=== PATIENT | female | born 1975 | race Caucasian/White ===

== ENCOUNTER 2017-04-18 20:11 | Emergency (ER) | payer OTHER ==
--- NOTE | 2017-04-18 21:28 | XRAY Preliminary Report ---
Exam: XR CHEST 2 VIEW PA/LAT IMPRESSION: 1. No acute disease in the chest. [facility] SITE ID: [id number]
[2017-04-18] MEDS ORDERED: IPRATROPIUM/ALBUTEROL 3 ML NEB INH STA (21:30)
[2017-04-18] MEDS ORDERED: DEXAMETHASONE 10 MG/ML VIAL PO STA (21:31)
--- NOTE | 2017-04-18 21:31 | XRAY Report ---
EXAM: CHEST RADIOGRAPHY EXAM DATE: 04/18/2017 08:56 PM. CLINICAL HISTORY: Cough, fever. COMPARISON: 07/01/2010. TECHNIQUE: 2 views. FINDINGS: Lungs/Pleura: No focal opacities evident. No pleural effusion. No pneumothorax. Normal volumes. Mediastinum: Heart and mediastinal contours are unremarkable. Other: None. IMPRESSION: 1. No acute disease in the chest. [facility] Referring Provider Line: [phone] SITE ID: [id number]
--- NOTE | 2017-04-18 21:33 | ED Physician Documentation ---
PD HPI URI - Stated complaint Stated Complaint: SOA/COUGH - Chief complaint Chief Complaint: Resp - History obtained from History obtained from: Patient, Family - History of Present Illness Timing - onset: How many weeks ago (1) Timing duration: Weeks (1) Timing details: Gradual onset Pain level max: 4 Pain level now: 3 Associated symptoms: Fever (Subjective), Nasal congestion, Rhinorrhea, Sore throat, Dry cough, Dyspnea (wheezing) Contributing factors: Sick contact, COPD / asthma (smokes cigarettes) Improves by: Rest Worsened by: Activity, Breathing Recently seen: Not recently seen Review of Systems Constitutional: reports: Fever, Chills Nose: reports: Rhinorrhea / runny nose, Congestion Cardiac: denies: Chest pain / pressure Respiratory: reports: Cough, Wheezing GI: denies: Abdominal Pain, Vomiting, Diarrhea : denies: Now EGA Skin: denies: Rash Musculoskeletal: denies: Neck pain, Back pain Neurologic: reports: Headache (Only when coughing) PD PAST MEDICAL HISTORY - Past Medical History Past Medical History: Yes GI: Other (IBS) Other Past Medical History: Costocondritis, seasonal allergies. 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 - Present Medications Home Medications: Ambulatory Orders Medication Instructions Recorded Confirmed Albuterol Sulf [Ventolin Hfa 2 puffs INH Q4HR PRN #1 inhaler 04/18/17 Inhaler] Benzonatate [Tessalon Perle] 100 - 200 mg PO TID PRN #30 capsule 04/18/17 Dicyclomine [Bentyl] 1 cap PO QID 04/18/17 04/18/17 Loratadine [Claritin] 1 tab PO DAILY 04/18/17 04/18/17 Methocarbamol [Robaxin] 1 tab PO QID 04/18/17 04/18/17 Omeprazole [PriLOSEC] 1 cap PO TID 04/18/17 04/18/17 raNITIdine [Zantac] 1 tab PO BID 04/18/17 04/18/17 - Allergies Allergies/Adverse Reactions: Allergies Allergy/AdvReac Type Severity Reaction Status Date / Time codeine Allergy Rash Verified 04/18/17 20:24 Penicillins Allergy Rash Verified 04/18/17 20:24 - Living Situation Living Situation: reports: With family Living Arrangement: reports: At home - Social History Does the pt smoke?: Yes Smoking Status: Current every day smoker Does the pt drink ETOH?: No Does the pt have substance abuse?: No - Immunizations Immunizations are current?: Yes PD ED PE NORMAL - Vitals Vital signs reviewed: Yes - General General: Alert and oriented X 3, No acute distress, Well developed/nourished - HEENT HEENT: PERRL, Ears normal, Moist mucous membranes, Pharynx benign - Neck Neck: Supple, no meningeal sign, No adenopathy - Cardiac Cardiac: RRR, Strong equal pulses - Respiratory Respiratory: No respiratory distress, Other (Diminished breath sounds bilaterally) - Abdomen Abdomen: Soft, Non tender, Non distended - Derm Derm: Warm and dry, No rash - Neuro Neuro: Alert and oriented X 3 - Psych Psych: Normal mood, Normal affect Results - Vitals Vitals: Vital Signs - 24 hr 04/18/17 04/18/17 04/18/17 20:15 22:02 22:48 Temperature 36.7 C 36.6 C Heart Rate 98 86 82 Respiratory 18 20 18 Rate Blood Pressure 127/82 H 128/82 H O2 Saturation 98 100 04/18/17 23:22 Temperature Heart Rate 76 Respiratory 14 Rate Blood Pressure 126/70 O2 Saturation 97 Oxygen O2 Source Room air - Rads (name of study) Chest x-ray Radiology: Prelim report reviewed, EMP read contemporaneously, See rad report ( No acute disease in the chest.) PD MEDICAL DECISION MAKING - ED course Complexity details: reviewed results, re-evaluated patient, considered differential, d/w patient, d/w family ED course: Patient is a 41-year-old female who presents to the emergency department with what appears to be a viral upper respiratory infection. She feels better after nebulizer treatment and is breathing easier. No acute findings on chest x-ray. Will place on an inhaler as well as cough medication for home. She is well- appearing, nontoxic. Afebrile. No hypoxia. No pneumonia. Patient counseled regarding signs and symptoms for which I believe and urgent re-evaluation would be necessary. Patient with good understanding of and agreement to plan and is comfortable going home at this time This document was made in part using voice recognition software. While efforts are made to proofread this document, sound alike and grammatical errors may occur. Departure - Departure Disposition: 01 Home, Self Care Clinical Impression: Viral URI Condition: Good Instructions: ED URI Viral W Wheezing Follow-Up: Marshal Phipps DO [Primary Care Provider] - Within 1 week Prescriptions: Albuterol Sulf [Ventolin Hfa Inhaler] 2 puffs INH Q4HR PRN #1 inhaler PRN Reason: Wheezing Benzonatate [Tessalon Perle] 100 - 200 mg PO TID PRN #30 capsule PRN Reason: Cough Comments: Drink plenty of fluids and rest. Return if you worsen. Your xray is normal tonight. Discharge Date/Time: 04/18/17 23:23
[2017-04-18] MEDS ORDERED: ACETAMINOPHEN 325 MG TABLET PO STA (23:06)
[2017-04-18 23:23] VITALS: BP 126/70
== END 2017-04-18 23:23 | disposition home or self-care (01) ==
LOC: ED 20:11
DX: J06.9 Acute upper respiratory infection, unspecified (principal); B97.89 Other viral agents as the cause of diseases classified elsewhere; F17.210 Nicotine dependence, cigarettes, uncomplicated
CPT/HCPCS: 71020; 94640; 99282; 99283; A9270; J7620

== ENCOUNTER 2018-04-01 10:20 | Emergency (ER) | payer OTHER ==
--- NOTE | 2018-04-01 11:56 | XRAY Report ---
Reason: fall Procedure Date: 04/01/2018 Accession Number: [id number] / [id number] Procedure: XR - Chest 1 View X-Ray CPT Code: 99929 FULL RESULT: EXAM: CHEST RADIOGRAPHY EXAM DATE: 04/01/2018 11:50 AM. CLINICAL HISTORY: Fall. COMPARISON: CHEST 2 VIEW PA/LAT 04/18/2017 8:46 PM. TECHNIQUE: 1 view. FINDINGS: Lungs/Pleura: No focal opacities evident. No pleural effusion. No pneumothorax. Mediastinum: Within exam limitations, the cardiomediastinal contour is normal; apparent interval enlargement of the cardiomediastinal silhouette is due to AP versus PA technique. Other: None. IMPRESSION: No acute cardiopulmonary abnormality. [facility]
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
[2018-04-01] MEDS ORDERED: oxyCODONE 5 MG TABLET PO STA (12:26)
[2018-04-01 13:11] VITALS: BP 130/90
== END 2018-04-01 12:58 | disposition home or self-care (01) ==
LOC: ED 10:20
DX: S20.212A Contusion of left front wall of thorax, initial encounter (principal); W22.09XA Striking against other stationary object, initial encounter; R00.0 Tachycardia, unspecified; R03.0 Elevated blood-pressure reading, without diagnosis of hypertension; I45.81 Long QT syndrome; F17.200 Nicotine dependence, unspecified, uncomplicated
CPT/HCPCS: 71045; 93005; 99283

== ENCOUNTER 2022-12-17 17:06 | Emergency (ER) | payer OTHER ==
[2022-12-17] MEDS ORDERED: KETOROLAC 30 MG/ML VIAL IM STA (17:17)
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
[2022-12-17 20:34] VITALS: BP 124/88; O2SAT 95
== END 2022-12-17 20:27 | disposition home or self-care (01) ==
LOC: ED 17:06
DX: S13.4XXA Sprain of ligaments of cervical spine, initial encounter (principal); V89.2XXA Person injured in unspecified motor-vehicle accident, traffic, initial encounter; Y93.89 Activity, other specified; Y92.410 Unspecified street and highway as the place of occurrence of the external cause; F17.200 Nicotine dependence, unspecified, uncomplicated
CPT/HCPCS: 96372; 99283; 99284

== ENCOUNTER 2023-06-24 17:23 | Emergency (ER) | payer OTHER ==
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
[2023-06-24] MEDS: ACETAMINOPHEN 325 MG TABLET PO STA (20:23)
--- NOTE | 2023-06-24 20:26 | ED Physician Documentation ---
History of Present Illness - Stated complaint Stated Complaint: RIB PX - Chief complaint Chief Complaint: Trauma Ch/Bk - Additonal information Additional information: 47-year-old female presents emergency department for left rib pain. About 1 week ago she was lying on her stomach and her 2-year-old was sitting on her back and is a 2-year-old got off her back she dug her heels and her left side. Since then she has been having some ongoing rib pain she said that she is taking Tylenol and ibuprofen at home [id number] without any relief. She said that the pain is gotten so severe that she is having a hard time sleeping or resting. 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 No shortness of breath no chest pain. 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, Tubal ligation - Present Medications Home Medications: Ambulatory Orders Medication Instructions Recorded Confirmed Ibuprofen [Motrin] 600 mg PO Q6H PRN #30 tab 12/17/22 Omeprazole Magnesium [Prilosec] 10 mg PO TID 06/24/23 06/24/23 - Allergies Allergies/Adverse Reactions: Allergies Allergy/AdvReac Type Severity Reaction Status Date / Time Penicillins Allergy Rash Verified 06/24/23 17:32 - Social History Does the pt smoke?: Yes Smoking Status: Current every day smoker Does the pt drink ETOH?: No Does the pt have substance abuse?: No - Immunizations Immunizations are current?: Yes PD ED PE NORMAL - Vitals Vital signs reviewed: Yes - General General: Alert and oriented X 3, Well developed/nourished - Cardiac Cardiac: RRR, No murmur, Strong equal pulses - Respiratory Respiratory: No respiratory distress, Clear bilaterally, Other (Left rib tenderness with palpation) - Back Back: No spinal TTP - Derm Derm: Normal color, Warm and dry, No rash - Neuro Neuro: Alert and oriented X 3 - Psych Psych: Normal mood, Normal affect Results - Vitals Vitals: Vital Signs - 24 hr 06/24/23 06/24/23 06/24/23 17:29 17:32 21:04 Temperature 36.4 C L 36.4 C L Heart Rate 87 87 68 Respiratory 16 16 18 Rate Blood Pressure 126/91 H 126/91 H 130/90 H O2 Saturation 99 99 98 Oxygen O2 Source Room air - Rads (name of study) Chest and left rib x-ray Relevant Findings:: Final report received, EMP independent interpretation of test, Other (No rib fracture, no acute cardiopulmonary abnormalities or findings.) PD Medical Decision Making - ED course ED course: 47 female presents emergency department for left rib pain. Patient says she is having a hard time getting comfortable due to the pain. X-rays completed which does not reveal any rib fracture I do not see anything on the skin concerning for possible shingles, there is no bruising or hematoma to the left rib. I believe that patient is experiencing pain on the left rib from a possible deep contusion. I am prescribing a short course of short-acting opioid pain medication for this patient. 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 I have discussed that the opioids are for short term therapy only, and will not be refilled from the ED. she was also given a lidocaine patch. She is told to follow-up with primary care provider for possible physical therapy referral. Departure - Departure Disposition: 01 Home, Self Care Clinical Impression: Rib contusion Qualifiers: Encounter type: initial encounter Laterality: unspecified laterality Qualified Code(s): S20.219A - Contusion of unspecified front wall of thorax, initial encounter Instructions: ED Contusion Chest Wall Comments: Thank you for trusting us with your care. We have completed x-rays of your ribs and we did not see any fractures. Going home you can alternate between Tylenol and ibuprofen for any pain or discomfort and you can apply ice to any sore areas for 20 minutes at a time 1 hour off and you can repeat this as needed for ongoing pain and discomfort. Please come back to the emergency department for having any difficulty breathing fevers or chills or any other concerning symptoms. I am prescribing a short course of narcotic pain medication for you. These are potentially dangerous and addictive medications that should be used carefully. These medications may constipate you. Take an klgl-fgq-tsjmkto stool softener (docusate) twice daily with plenty of water while taking these medications. If you go 24 hours without a bowel movement, take uguy-rli-eygjyca miralax, per package instructions. Do not drink or drive while taking these medications. If you received narcotic or sedating medications while in the emergency depa rtment, do not drive for 24 hours. Store this medication in a safe, secure place and out of reach of children. It is a violation of federal law to give or sell this medication to another person or to use in a manner other than prescribed. The ED will not refill narcotic prescriptions, including prescriptions lost or stolen. To dispose of unwanted medications: 1. [facility] at [address] in [place] has a medication drop box. They accept prescription medications (in pill form) Thursday through Thursday 9:00 a.m. to 5:00 p.m. 2. The [facility] [employer] accepts prescription medications (in pill form only) for disposal year round. Call for more information. 3. Contact the [facility] for the next [facility] sponsored prescription drug collection event. , [phone], or [phone]; Note that many narcotic pain relievers also contain Tylenol/acetaminophen. Please ensure that your total dose of acetaminophen from all sources does not exceed 3 g (3000 mg) per day. Wishing you a speedy recovery. Forms: PCP List Discharge Date/Time: 06/24/23 21:04
[2023-06-24] MEDS: oxyCODONE/ACET 5/325 Prepack 4 PO STA (20:57)
[2023-06-24] MEDS: oxyCODONE 5 MG TABLET PO STA (20:58)
[2023-06-24] MEDS: LIDOCAINE PATCH 4% TOP STA (20:59)
[2023-06-24 21:08] VITALS: BP 130/90; O2SAT 98
== END 2023-06-24 21:04 | disposition home or self-care (01) ==
LOC: ED 17:23
DX: S20.212A Contusion of left front wall of thorax, initial encounter (principal); X58.XXXA Exposure to other specified factors, initial encounter; F17.200 Nicotine dependence, unspecified, uncomplicated
CPT/HCPCS: 71101; 99283; A9270

== ENCOUNTER 2023-11-21 09:18 | Outpatient (CLI) | payer OTHER | END 2023-11-21 23:59 | disposition critical access hospital (66) | LOC: EMS 09:18 | DX: M54.2 Cervicalgia (principal); M54.9 Dorsalgia, unspecified; V40.5XXA Car driver injured in collision with pedestrian or animal in traffic accident, initial encounter; Y92.414 Local residential or business street as the place of occurrence of the external cause | CPT/HCPCS: A0425; A0429 ==

== ENCOUNTER 2023-11-21 09:51 | Emergency (ER) | payer OTHER ==
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
[2023-11-21] MEDS: oxyCODONE 5 MG TABLET PO STA (10:09)
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
[2023-11-21 11:23] VITALS: BP 136/94; O2SAT 97
== END 2023-11-21 11:16 | disposition home or self-care (01) ==
LOC: EDUNIT# → ED 09:51
DX: S16.1XXA Strain of muscle, fascia and tendon at neck level, initial encounter (principal); V40.5XXA Car driver injured in collision with pedestrian or animal in traffic accident, initial encounter; M79.7 Fibromyalgia; F17.290 Nicotine dependence, other tobacco product, uncomplicated
CPT/HCPCS: 70450; 71045; 72125; 99284; A9270